=== PATIENT | male | born 1945 | race Caucasian/White ===

== ENCOUNTER 2021-09-17 08:18 | Day surgery (SDC) | payer OTHER ==
[~2021-09-17] VITALS: Ht 167.6 cm; Wt 85.4 kg
[2021-09-17] MEDS ORDERED: NEURONTIN300 MG/CAP PO (09:10)
[2021-09-17] MEDS ORDERED: CRESTOR 10MG10 MG PO (09:11)
[2021-09-17] MEDS ORDERED: COZAAR 25MG25 MG/TAB PO (09:11)
[2021-09-17] MEDS ORDERED: TOPROL XL 50MG50 MG PO (09:12)
[2021-09-17] MEDS ORDERED: HYGROTON 2525 MG/TAB PO (09:12)
[2021-09-17] MEDS ORDERED: CYMBALTA 30MG30 MG PO (09:13)
[2021-09-17] MEDS ORDERED: PROTONIX 40MG T40 MG PO (09:13)
[2021-09-17] MEDS ORDERED: CLARITIN 1010 MG/TAB PO (09:14)
[2021-09-17] MEDS ORDERED: ASPIRIN E.C. 8181 MG PO (09:14)
[2021-09-17 09:15] VITALS: BP 141/77; PULSE 83; TEMP 97.7
[2021-09-17 10:45] VITALS: BP 113/65; PULSE 73; TEMP 97.7
--- NOTE | 2021-09-17 10:45 | NUR ---
PATIENT TO ROOM 2 VIA CART. ASSIST TO BED X 1. AT BEDSIDE. VITAL SIGNS WNL. PATIENT REQUESTS SPRITE AND A BLUEBERRY MUFFIN. WAITING FOR DOCTOR TO SPEAK WITH PATIENT. WILL CONTINUE TO MONITOR.
[2021-09-17 11:00] VITALS: BP 117/63; PULSE 69
--- NOTE | 2021-09-17 11:00 | NUR ---
PATIENT IS AWAKE AND TOLERATING THE BLUEBERRY MUFFIN AND SPRITE WITHOUT ANY NAUSEA. AT BEDSIDE. WAITING FOR DOCTOR TO SPEAK WITH PATIENT. VITAL SIGNS WNL. WILL CONTINUE TO MONITOR.
[2021-09-17 11:15] VITALS: BP 114/70; PULSE 70
--- NOTE | 2021-09-17 11:15 | NUR ---
PATIENT READY FOR DISCHARGE. DOCTOR AT BEDSIDE. VITAL SIGNS WNL. IV DISCONTINUED. DISCHARGE INSTRUCTIONS REVIEWED WITH PATIENT AND . WILL DISCHARGE VIA WHEELCHAIR WHEN DRESSED.
== END 2021-09-17 11:28 | disposition home or self-care (01) ==
LOC: SDCO 08:18
DX: D12.2 Benign neoplasm of ascending colon (principal); K57.30 Diverticulosis of large intestine without perforation or abscess without bleeding; K64.1 Second degree hemorrhoids; Z95.1 Presence of aortocoronary bypass graft; Z95.2 Presence of prosthetic heart valve; Z87.891 Personal history of nicotine dependence
CPT/HCPCS: J2704; J3010; J7120

== ENCOUNTER 2022-11-29 09:00 | Outpatient (RCR) | payer OTHER ==
[~2022-11-29 09:00] MED LIST: ASPIRIN E.C. 8181 MG PO; CLARITIN 1010 MG/TAB PO; COZAAR 25MG25 MG/TAB PO; CRESTOR 10MG10 MG PO; CYMBALTA 30MG30 MG PO; HYGROTON 2525 MG/TAB PO; K-DUR20 MEQ PO; NEURONTIN300 MG/CAP PO; PROTONIX 40MG T40 MG PO; TOPROL XL 50MG50 MG PO
== END 2022-12-01 | disposition home or self-care (01) ==
LOC: WSOT
DX: G56.01 Carpal tunnel syndrome, right upper limb (principal)

== ENCOUNTER 2023-05-11 09:00 | Outpatient (RCR) | payer OTHER | END 2023-05-11 11:00 | disposition home or self-care (01) | LOC: WSOT 09:00 | DX: G56.01 Carpal tunnel syndrome, right upper limb (principal) ==

== ENCOUNTER 2023-07-11 15:18 | Emergency (ER) | payer OTHER ==
[~2023-07-11] VITALS: Ht 167.6 cm; Wt 86.4 kg
[~2023-07-11 15:18] MED LIST changes: +LOPRESSOR 225 MG/TAB PO; -TOPROL XL 50MG50 MG PO
[2023-07-11 15:27] VITALS: TEMP 98.4
[2023-07-11] MEDS ORDERED: TYLENOL 8 HR PO (16:01)
[2023-07-11] MEDS ORDERED: VITAMIN D31000 I1 PO (16:03)
[2023-07-11] MEDS ORDERED: GLUCOPHAGE500 MG/TAB PO (16:03)
[2023-07-11] MEDS ORDERED: CVS SPECTRAVIT1 EA15 PO (16:04)
[2023-07-11] MEDS ORDERED: NESINA25 PO (16:04)
[2023-07-11] MEDS ORDERED: MINIPRESS 1M1 MG/CAP PO (16:05)
[2023-07-11] MEDS ORDERED: ATARAX 10MG10 MG/TAB PO (16:05)
[2023-07-11 16:22] LABS: BASO % 0.3 % (0.0-2.0); EOS # 0.2 K/mm3 (0.0-0.7); EOS % 1.9 % (0.0-4.0); GRAN # 6.5 K/mm3 (1.4-6.5); GRAN % 63.6 % (42.2-75.2); HEMATOCRIT 45.7 % (42.0-52.0); HEMOGLOBIN 16.1 g/dl (13.5-18.0); LYMPH # 2.4 K/mm3 (1.2-3.4); LYMPH % 23.8 % (20.0-51.0); MEAN CELL VOLUME 92 fl (80.0-100.0); MEAN CORPUSCULAR HEMOGLOBIN 33 pg (27-31); MEAN CORPUSCULAR HGB CONC 35 g/dl (33.0-37.0); MONO % 9.8 % (1.7-9.3); PLATELET COUNT 228 K/mm3 (130-400); RED BLOOD COUNT 4.95 M/mm3 (4.20-5.60); REDCELL DISTRIBUTION WIDTH-CV 13.2 % (11.5-14.5)
[2023-07-11 16:34] LABS: ALBUMIN 4.5 g/dL (3.4-4.8); BILIRUBIN,TOTAL 1.4 mg/dL (0.2-1.2); CALCIUM 9.9 mg/dL (8.4-10.2); MAGNESIUM 2.1 mg/dL (1.6-2.6); POTASSIUM 3.8 mEq/L (3.5-4.5); TOTAL PROTEIN 7.4 g/dl (6.2-8.1)
[2023-07-11 16:44] LABS: TROPONIN-I 0.094 ng/mL (0.00-0.033)
[2023-07-11 19:12] LABS: COLLECTION METHOD CLEAN CATCH
[2023-07-11 19:33] LABS: PH 6.5 (5.0-8.5); URINE APPEARANCE CLEAR (CLEAR/HAZY); URINE BLOOD NEGATIVE (NEGATIVE); URINE COLOR YELLOW (YELLOW); URINE GLUCOSE NEGATIVE (NEGATIVE); URINE KETONE NEGATIVE (NEGATIVE); URINE NITRATE NEGATIVE (NEGATIVE); URINE PROTEIN(semi-quant) NEGATIVE (NEGATIVE)
[2023-07-11] MEDS ORDERED: Losartan 25 MG TAB PO ONE (20:00)
[2023-07-11] MEDS ORDERED: Metoprolol Tartrate 25 MG TAB PO ONE (20:00)
[2023-07-11 22:54] VITALS: BP 152/75; PULSE 69
== END 2023-07-11 23:26 | disposition short-term general hospital (02) ==
LOC: COL.ER 15:18
PROVIDERS: Emergency Medicine
DX: I21.4 Non-ST elevation (NSTEMI) myocardial infarction (principal); R53.81 Other malaise; R51.9 Headache, unspecified; R79.89 Other specified abnormal findings of blood chemistry; Z95.5 Presence of coronary angioplasty implant and graft; Z95.1 Presence of aortocoronary bypass graft; Z95.4 Presence of other heart-valve replacement